=== PATIENT | female | born 1985 ===

== ENCOUNTER 2017-05-08 07:39 | Emergency (ER) | payer OTHER ==
[2017-05-08 08:14] VITALS: BP 132/92
[2017-05-08] MEDS ORDERED: Artificial Tears* 15 ML BTL RIGHT EYE ONE (08:15)
[2017-05-08] MEDS ORDERED: Tetracaine 0.5% OPTH.SOL 4 ML* 1 DROP BTL RIGHT EYE ONE (08:15)
--- NOTE | 2017-05-08 08:15 | UC ---
Eye Complaint HPI - History of Current Complaint Chief Complaint: UCEye Stated Complaint: EYE COMPLAINT Time Seen by Provider: 05/08/17 08:05 Hx Obtained From: Patient Hx Last Menstrual Period: February 2017, pt on nuva ring and keeps it in all times ?: No Onset/Duration: Sudden Onset - tsarted last juan jose when put in new contact lens- felt stinging sensation and now eye tearing and burning. no loss vision Timing: Constant Severity Initially: Moderate Severity Currently: Moderate Location of Injury: Conjunctiva Character: Sharp - burning Aggravating Factor(s): Light, Blinking Alleviating Factor(s): Other - ice pack Associated Signs And Symptoms: Positive: Photophobia - Risk Factors Penetrating Injury Risk Factor: Negative Globe Rupture Risk Factors: Negative - Allergies/Home Medications Allergies/Adverse Reactions: Allergies Allergy/AdvReac Type Severity Reaction Status Date / Time Montelukast [From Singulair] AdvReac Intermediate See Comment Verified 05/08/17 07:58 Home Medications: Home Medications Loperamide CAP* [Imodium CAP*] 2 mg PO DAILY 05/08/17 [History Confirmed ] Nuva Ring 1 applic VAGINAL DAILY 05/08/17 [History] PMH/Surg Hx/FS Hx/Imm Hx Previously Healthy: Yes - Surgical History Surgical History: None - Family History Known Family History: Positive: None - Social History Occupation: Employed Full-time - finance Lives: With Family Alcohol Use: Occasionally Substance Use Type: None Smoking Status (MU): Never Smoked Tobacco Review of Systems Constitutional: Negative Skin: Negative Eyes: Eye Redness, Other - burning ENT: Negative Respiratory: Negative Cardiovascular: Negative Neurological: Negative Psychological: Negative All Other Systems Reviewed And Are Negative: Yes Physical Exam Triage Information Reviewed: Yes Appearance: Well-Appearing, Well-Nourished Vital Signs: Initial Vital Signs Temp 100.6 F 05/08/17 07:52 Pulse 92 05/08/17 07:52 Resp 16 05/08/17 07:52 BP 132/92 05/08/17 07:52 Pulse Ox 100 05/08/17 07:52 Vital Signs Reviewed: Yes Eyes: Positive: Conjunctiva Inflamed ENT Exam: Normal ENT: Positive: Pharynx normal. Negative: Nasal congestion, Nasal drainage Neck exam: Normal Respiratory Exam: Normal Cardiovascular Exam: Normal Psychological Exam: Normal Skin Exam: Normal Skin: Negative: rashes Procedures - Eye Procedure Alcaine Drops Administered: Yes Eye Irrigated w/ Saline (ccs): 30 - neg fluorsciene stain OD, no F/B detected Eye Complaint Course/Dx - Differential Dx/Diagnosis Differential Diagnosis/HQI/PQRI: Conjunctivitis, Corneal Abrasion, Foreign Body , Other - chemosis, allergy Provider Diagnoses: chemosis Discharge - Discharge Plan Condition: Good Disposition: HOME Patient Education Materials: Conjunctivitis (ED) Additional Instructions: avoid bright lights for 24-48hours and do not use your contacts Return here if your pain or symptoms worsen
[2017-05-08] MEDS ORDERED: Fluorescein Sodium TOPICAL* 1 MG TEST OPHTHALMIC ONE (08:16)
[2017-05-08] MEDS ORDERED: BSS OPTH.SOL* BTL OPHTHALMIC ONE (08:20)
== END 2017-05-08 08:50 | disposition home or self-care (01) ==
LOC: UCEAST 07:39
DX: H11.421 Conjunctival edema, right eye (principal)
CPT/HCPCS: 99203; A9270-GY; G0463